=== PATIENT | male | born 1990 | race Hispanic/Latino ===

== ENCOUNTER 2016-05-17 15:02 | Emergency (ER) | payer SELFPAY ==
[2016-05-17 15:21] VITALS: BP 115/79
[2016-05-17] MEDS ORDERED: NORCO 5/325 ONE (15:29)
--- NOTE | 2016-05-17 15:35 | Emergency Department Report ---
Chief Complaint: Extremity Injury, Lower Stated Complaint: FALL/SWOLLEN LEFT ANKLE Time Seen by Provider: 05/17/16 15:27 - HPI History of Present Illness: 25-year-old male comes in with complaint of left foot swelling and ankle swelling with pain. Patient reports that he had stepped wrong while getting off the bed. - Exam Vital Signs: Vital Signs 05/17/16 15:10 Temperature 98.4 F Pulse Rate 80 Respiratory 17 Rate Blood Pressure 115/79 O2 Sat by Pulse 98 Oximetry Physical Exam: Patient's alert and oriented 3 no acute distress. Left ankle left foot swelling, pain with movement. Capillary refills intact pulses are intact. MSE screening note: Focused history and physical exam performed. Due to findings the following was ordered: X-ray of left foot and left ankle ordered [place] pain medication was ordered for patient. Patient be evaluated in fast track ED Disposition for MSE Condition: Stable
[2016-05-17] MEDS ORDERED: NORCO 5/325 PO ONE ×2 (15:42→18:33)
--- NOTE | 2016-05-17 17:23 | XRay Report ---
FINAL REPORT PROCEDURE: Left foot. TECHNIQUE: AP and lateral views. HISTORY: Left foot and ankle swelling. COMPARISON: No prior studies are available for comparison. FINDINGS: The bones appear intact without fracture or dislocation. The joint spaces appear normal. The soft tissues are unremarkable. IMPRESSION: Normal study.
--- NOTE | 2016-05-17 17:25 | XRay Report ---
FINAL REPORT PROCEDURE: Left ankle. TECHNIQUE: AP and lateral views. HISTORY: Left ankle and foot swelling. COMPARISON: No prior studies are available for comparison. FINDINGS: The bones appear intact without fracture or dislocation. The joint spaces appear normal. There is prominent soft tissue swelling overlying the lateral malleolus. IMPRESSION: Soft tissue injury without fracture.
--- NOTE | 2016-05-17 18:19 | Emergency Department Report ---
ED Lower Extremity HPI - General Chief Complaint: Extremity Injury, Lower Stated Complaint: FALL/SWOLLEN LEFT ANKLE Time Seen by Provider: 05/17/16 15:27 Source: patient Mode of arrival: Wheelchair Limitations: No Limitations - History of Present Illness Initial Comments: Patient reports while standing on his bed, he stepped off the bed and twisted his left ankle. He complains of pain and swelling to the left lateral ankle Complaint: ankle injury (left) Onset/Timin -: hour(s) Time: 14:00 Injury: Ankle: Left Type of Injury: unknown Place: home Severity: severe Severity scale (0 -10): 8 Improves With: immobilization, rest Worsens With: weight bearing Context: other (stepped from the bed) Other Symptoms: other (none) Associated Symptoms: swelling, able to partially bear weight. denies: snap/pop sensation, numbness, tingling, unable to bear weight, ambulatory Treatments Prior to Arrival: other (icepack) - Related Data Previous Rx's Medication Instructions Recorded Last Taken Type Ibuprofen [Motrin 800 MG tab] 800 mg PO Q8HR PRN #30 tablet 05/17/16 Unknown Rx Allergies Allergy/AdvReac Type Severity Reaction Status Date / Time latex Allergy Shortness Verified 05/17/16 15:17 of Breath Sulfa (Sulfonamide Allergy Unknown Verified 05/17/16 15:17 Antibiotics) adhesive AdvReac "PULLS Verified 05/17/16 15:17 SKIN OFF" zinc oxide AdvReac Rash Verified 05/17/16 15:17 ED Review of Systems ROS: Stated complaint: FALL/SWOLLEN LEFT ANKLE Other details as noted in HPI Constitutional: denies: chills, diaphoresis, fever, malaise, weakness Respiratory: denies: cough, orthopnea, shortness of breath, SOB with exertion, SOB at rest, stridor, wheezing Cardiovascular: denies: chest pain, palpitations, dyspnea on exertion, orthopnea , edema, syncope, paroxysmal nocturnal dyspnea Musculoskeletal: arthralgia (left ankle). denies: back pain, joint swelling, myalgia Skin: denies: rash, lesions, change in color, change in hair/nails, pruritus Neurological: denies: headache, weakness, numbness, paresthesias, confusion, abnormal gait, vertigo Hematological/Lymphatic: denies: easy bleeding, easy bruising, swollen glands ED Past Medical Hx - Past Medical History Hx Seizures: Yes (CHILD) Additional medical history: NONSPECIFIC TYPE 1 MUSCLE ATROPHY - Surgical History Additional Surgical History: FEEDING TUBES / ABD SURGERIES-"REROUTED STOMACH". DOUBLE HERNIA REPAIR - Social History Smoking Status: Never Smoker Substance Use Type: Alcohol - Medications Home Medications: Home Medications Medication Instructions Recorded Confirmed Last Taken Type Ibuprofen [Motrin 800 MG tab] 800 mg PO Q8HR PRN #30 tablet 05/17/16 Unknown Rx ED Physical Exam - General Limitations: No Limitations General appearance: alert, in no apparent distress - Head Head exam: Present: atraumatic - Neck Neck exam: Present: normal inspection, full ROM. Absent: tenderness, meningismus, lymphadenopathy, thyromegaly - Respiratory Respiratory exam: Present: normal lung sounds bilaterally. Absent: respiratory distress, wheezes, rales, rhonchi, stridor, chest wall tenderness, accessory muscle use, decreased breath sounds, prolonged expiratory - Cardiovascular Cardiovascular Exam: Present: regular rate, normal rhythm, normal heart sounds. Absent: systolic murmur, diastolic murmur, rubs, gallop, clicks, JVD, S3, S4 - Expanded Lower Extremity Exam Left Hip exam: Present: pelvic stability Lower Leg exam: Present: normal inspection, full ROM. Absent: tenderness, swelling, abrasion, laceration, ecchymosis, deformity, crepidus, dislocation, erythema, palpable cord, Angela's sign Ankle exam: Present: full ROM, tenderness (palpation to the dorsum and lateral area), swelling (to the dorsum and lateral area). Absent: abrasion, laceration , ecchymosis, deformity, crepidus, dislocation, erythema, anterior draw sign Foot/Toe exam: Present: normal inspection, full ROM. Absent: tenderness, swelling, abrasion, laceration, ecchymosis, deformity, crepidus, dislocation, erythema, amputation, puncture wound, foreign body, calcaneal tenderness, tenderness at base of 5th metatarsal, nail avulsion, subungual hematoma Neuro vascular tendon exam: Present: no vascular compromise. Absent: pulse deficit, abnormal cap refill, motor deficit, sensory deficit, tendon deficit, extremity cold to touch, pallor, abnormal 2-point discrimination, decreased fine /light touch, foot drop, peroneal nerve deficit, significant pain with passive ROM of distal joint Gait: Positive: not tested/not observed - Back Exam Back exam: Present: normal inspection, full ROM. Absent: tenderness, muscle spasm, paraspinal tenderness - Neurological Exam Neurological exam: Present: alert, oriented X3, CN II-XII intact, normal gait, reflexes normal. Absent: motor sensory deficit - Skin Skin exam: Present: warm, dry, intact, normal color. Absent: rash ED Course Vital Signs 05/17/16 05/17/16 15:10 15:30 Temperature 98.4 F Pulse Rate 80 Respiratory 17 16 Rate Blood Pressure 115/79 O2 Sat by Pulse 98 Oximetry - Reevaluation(s) Reevaluation #1: 05/17/16 18:32 Pain medication, radiology studies, Velcro ankle stirrup and crutches ordered Reevaluation #2: 05/17/16 18:37 pain medication ordered ED Lower Extremity MDM - Lab Data Vital Signs 05/17/16 05/17/16 15:10 15:30 Temperature 98.4 F Pulse Rate 80 Respiratory 17 16 Rate Blood Pressure 115/79 O2 Sat by Pulse 98 Oximetry - Radiology Data Radiology results: image reviewed PROCEDURE: Left ankle. TECHNIQUE: AP and lateral views. HISTORY: Left ankle and foot swelling. COMPARISON: No prior studies are available for comparison. FINDINGS: The bones appear intact without fracture or dislocation. The joint spaces appear normal. There is prominent soft tissue swelling overlying the lateral malleolus. IMPRESSION: Soft tissue injury without fracture. PROCEDURE: Left foot. TECHNIQUE: AP and lateral views. HISTORY: Left foot and ankle swelling. COMPARISON: No prior studies are available for comparison. FINDINGS: The bones appear intact without fracture or dislocation. The joint spaces appear normal. The soft tissues are unremarkable. IMPRESSION: Normal study. - Medical Decision Making During the course of ED, pain medication and radiology studies were ordered. The imaging study revealed a normal study with soft tissue injury without fracture. He reports his pain was still 8/10, therefore [place] was given prior to discharge. He was sent home with a Velcro ankle stirrup, crutches and a prescription for ibuprofen, instructed to follow up with selective referrals given at discharge, he verbalize understanding - Differential Diagnosis Left Ankle Pain, Left Ankle Fracture Critical care attestation.: If time is entered above; I have spent that time in minutes in the direct care of this critically ill patient, excluding procedure time. ED Disposition Clinical Impression: Left ankle pain Qualifiers: Chronicity: acute Qualified Code(s): M25.572 - Pain in left ankle and joints of left foot Disposition: DISCHARGED TO HOME OR SELFCARE Is pt being admited?: No Does the pt Need Aspirin: No Condition: Stable Instructions: Ankle Sprain (ED), Ankle Stirrup Splint (ED), Ankle Exercises ( GEN) Additional Instructions: Take Medication as directed. Rest the affected area, apply ice to the affected area every hour for 15 minutes, wear splint and elevate the affected extremity to decrease swelling. Follow up with selective referral given at discharge. Return back to the ED for worsening symptoms or concerns Prescriptions: Ibuprofen [Motrin 800 MG tab] 800 mg PO Q8HR PRN #30 tablet PRN Reason: Pain Referrals: BLANCA BALDWIN MD [Staff Physician] - 3-5 Days JORDY DHALIWAL MD [Staff Physician] - 3-5 Days Forms: Work/School Release Form(ED) Time of Disposition: 18:23
== END 2016-05-17 18:30 | disposition home or self-care (01) ==
LOC: ED 15:02
DX: M25.572 Pain in left ankle and joints of left foot (principal); Z91.040 Latex allergy status; Z88.2 Allergy status to sulfonamides; Z88.8 Allergy status to other drugs, medicaments and biological substances; W17.89XA Other fall from one level to another, initial encounter; Y93.89 Activity, other specified; Y99.8 Other external cause status; Y92.003 Bedroom of unspecified non-institutional (private) residence as the place of occurrence of the external cause

== ENCOUNTER 2017-11-01 13:02 | Emergency (ER) | payer SELFPAY ==
--- NOTE | 2017-11-01 14:25 | Emergency Department Report ---
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 Pain is in the epigastric and left upper quadrant area , rate is 6/10 intensity, constant, and squeezing in nature. Symptoms worsened with bending of his torso, palpation, and with eating food. No nausea, vomiting , diarrhea, melena, or hematochezia. Patient had a dilation procedure performed after his Girma procedure due to distal esophageal stenosis and esophageal food impaction. Patient denies any symptoms currently. Patient is not currently under care of a GI doctor because he is uninsured. He does not currently take any antacids or reflex medications because historically they have not helped. Epigastric, LLQ tenderness on exam labs: cbc, cmp, lipase ct a/p PO and IV contrast pt declined pain med midlevel to follow.
[2017-11-01 15:09] LABS: Basophils % (Auto) 0.4 % (0.0-1.8); Eosinophils # (Auto) 0.1 K/mm3 (0.0-0.4); Eosinophils % (Auto) 0.7 % (0.0-4.3); Hematocrit 43.5 % (35.5-45.6); Hemoglobin 14.7 gm/dl (11.8-15.2); Lymphocytes # (Auto) 3.2 K/mm3 (1.2-5.4); Lymphocytes % (Auto) 30.5 % (13.4-35.0); Mean Corpuscular HGB Conc 34 % (32-34); Mean Corpuscular Hemoglobin 28 pg (28-32); Mean Corpuscular Volume 83 fl (84-94); Monocytes # (Auto) 0.9 K/mm3 (0.0-0.8); Monocytes % (Auto) 8.5 % (0.0-7.3); Platelet Count 244 K/mm3 (140-440); Red Blood Count 5.27 M/mm3 (3.65-5.03)
[2017-11-01 15:36] LABS: Alanine Aminotransferase 28 units/L (7-56); Albumin 4.5 g/dL (3.9-5); BUN/Creatinine Ratio 10; Blood Urea Nitrogen 7 mg/dL (9-20); Calcium 9.7 mg/dL (8.4-10.2); Hemolysis Index 5; Lipase 29 units/L (13-60)
--- NOTE | 2017-11-01 17:36 | Cat Scan Report ---
FINAL REPORT EXAM: CT ABDOMEN PELVIS W CON HISTORY: epigastric, luq pain, hx of Girma procedure TECHNIQUE: CT abdomen and pelvis with oral and intravenous contrast PRIORS: None. FINDINGS: No acute abnormality identified in the lung bases. There is evidence for prior surgery at the gastroesophageal junction consistent with the history of Girma fundoplication. No focal abnormality identified within the liver parenchyma. The spleen demonstrates normal size and attenuation. No pancreatic abnormalities seen. The kidneys demonstrate symmetric contrast enhancement. Adrenal glands are unremarkable. No evidence of hydronephrosis. Noted is a 1.6 centimeter a right renal cyst. Abdominal aorta is normal in caliber. No pathologically enlarged lymph nodes are identified. No signs of free fluid or free air No evidence of small bowel dilatation. No pericolonic inflammatory changes are observed. Urinary bladder is unremarkable. IMPRESSION: Right renal cyst noted Girma fundoplication No acute abnormality identified in the abdomen or pelvis
[2017-11-01] MEDS ORDERED: ZOFRAN IV ONE (17:54)
[2017-11-01] MEDS ORDERED: DILAUDID IV ONE (17:54)
[2017-11-01] MEDS ORDERED: PEPCID IV ONE ×2 (18:42→18:43)
--- NOTE | 2017-11-01 18:47 | Emergency Department Report ---
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 MD Complaint: abdominal pain Onset/Timin -: week(s) Location: epigastric Migration to: epigastric Severity: moderate Worsens With: eating - Related Data Previous Rx's Medication Instructions Recorded Last Taken Type Ibuprofen [Motrin 800 MG tab] 800 mg PO Q8HR PRN #30 tablet 05/17/16 Unknown Rx Famotidine [Pepcid] 20 mg PO BID PRN #30 tablet 11/01/17 Unknown Rx Ondansetron [Zofran Odt] 4 mg PO Q6H PRN #15 tab.rapdis 11/01/17 Unknown Rx traMADol [Ultram 50 MG tab] 50 mg PO Q6HR PRN #15 tablet 11/01/17 Unknown Rx Allergies Allergy/AdvReac Type Severity Reaction Status Date / Time latex Allergy Shortness Verified 05/17/16 15:17 of Breath Sulfa (Sulfonamide Allergy Unknown Verified 05/17/16 15:17 Antibiotics) adhesive AdvReac "PULLS Verified 05/17/16 15:17 SKIN OFF" zinc oxide AdvReac Rash Verified 05/17/16 15:17 ED Review of Systems ROS: Stated complaint: ABD PAIN Other details as noted in HPI Constitutional: denies: chills, fever Eyes: denies: eye pain, eye discharge, vision change ENT: denies: ear pain, throat pain Respiratory: denies: cough, shortness of breath, wheezing Cardiovascular: denies: chest pain, palpitations Endocrine: no symptoms reported Gastrointestinal: as per HPI (history of abdominal surgery Niesen procedure). denies: abdominal pain, nausea, diarrhea Genitourinary: denies: urgency, dysuria Musculoskeletal: denies: back pain, joint swelling, arthralgia Skin: denies: rash, lesions Neurological: denies: headache, weakness, paresthesias Psychiatric: denies: anxiety, depression Hematological/Lymphatic: denies: easy bleeding, easy bruising ED Past Medical Hx - Past Medical History Previous Medical History?: Yes Hx Seizures: Yes (CHILD) Additional medical history: NONSPECIFIC TYPE 1 MUSCLE ATROPHY - Surgical History Past Surgical History?: Yes Additional Surgical History: FEEDING TUBES / ABD SURGERIES-"REROUTED STOMACH". DOUBLE HERNIA REPAIR - Social History Smoking Status: Never Smoker Substance Use Type: None - Medications Home Medications: Home Medications Medication Instructions Recorded Confirmed Last Taken Type Ibuprofen [Motrin 800 MG tab] 800 mg PO Q8HR PRN #30 tablet 05/17/16 Unknown Rx Famotidine [Pepcid] 20 mg PO BID PRN #30 tablet 11/01/17 Unknown Rx Ondansetron [Zofran Odt] 4 mg PO Q6H PRN #15 tab.rapdis 11/01/17 Unknown Rx traMADol [Ultram 50 MG tab] 50 mg PO Q6HR PRN #15 tablet 11/01/17 Unknown Rx ED Physical Exam - General Limitations: No Limitations General appearance: alert, in no apparent distress - Head Head exam: Present: atraumatic, normocephalic - Eye Eye exam: Present: normal appearance - ENT ENT exam: Present: mucous membranes moist - Neck Neck exam: Present: normal inspection - Respiratory Respiratory exam: Present: normal lung sounds bilaterally. Absent: respiratory distress - Cardiovascular Cardiovascular Exam: Present: regular rate, normal rhythm. Absent: systolic murmur, diastolic murmur, rubs, gallop - GI/Abdominal GI/Abdominal exam: Present: tenderness (epigastric tenderness on palpation), normal bowel sounds - Rectal Rectal exam: Present: deferred - Extremities Exam Extremities exam: Present: normal inspection - Back Exam Back exam: Present: normal inspection - Neurological Exam Neurological exam: Present: alert, oriented X3 - Psychiatric Psychiatric exam: Present: normal affect, normal mood - Skin Skin exam: Present: warm, dry, intact, normal color. Absent: rash ED Course Vital Signs 11/01/17 11/01/17 11/01/17 13:08 16:40 18:53 Temperature 98.5 F Pulse Rate 84 Respiratory 16 18 18 Rate Blood Pressure 137/79 O2 Sat by Pulse 99 99 Oximetry 11/01/17 18:59 Temperature Pulse Rate 72 Respiratory Rate Blood Pressure 142/93 O2 Sat by Pulse 96 Oximetry ED Medical Decision Making - Lab Data Result diagrams: 11/01/17 14:49 11/01/17 14:49 - Medical Decision Making A/P: Abdominal pain 1-CT shows no acute abnormality no dehiscence along GI tract no extravasation of IV or by mouth contrast. 2-labs including CBC and basic metabolic panel and LFTs as well as lipase unremarkable. All results and clinical plan discussed with Dr. Gabriel before discharge 3-short course of tramadol when necessary. Pepcid when necessary 4- I referred patient to outpatient surgery and GI Critical care attestation.: If time is entered above; I have spent that time in minutes in the direct care of this critically ill patient, excluding procedure time. ED Disposition Clinical Impression: Abdominal pain Qualifiers: Abdominal location: epigastric Qualified Code(s): R10.13 - Epigastric pain Disposition: TO HOME OR SELFCARE Is pt being admited?: No Does the pt Need Aspirin: No Condition: Stable Instructions: Abdominal Pain (ED) Prescriptions: Famotidine [Pepcid] 20 mg PO BID PRN #30 tablet PRN Reason: Indigestion Ondansetron [Zofran Odt] 4 mg PO Q6H PRN #15 tab.rapdis PRN Reason: Nausea traMADol [Ultram 50 MG tab] 50 mg PO Q6HR PRN #15 tablet PRN Reason: Pain Referrals: [facility] [Provider Group] - 3-5 Days [facility] [Provider Group] - 3-5 Days Forms: Accompanied Note, Work/School Release Form(ED) Time of Disposition: 18:49
[2017-11-01 19:08] VITALS: BP 142/93
== END 2017-11-01 19:00 | disposition home or self-care (01) ==
LOC: ED 13:02
DX: R10.13 Epigastric pain (principal); K21.9 Gastro-esophageal reflux disease without esophagitis; Z88.2 Allergy status to sulfonamides; Z88.8 Allergy status to other drugs, medicaments and biological substances; Z91.040 Latex allergy status; Z98.890 Other specified postprocedural states
CPT/HCPCS: 36415; 74177; 80053; 83690; 85025; 96374; 96375; 99284; J1170; J2405; Q9967